=== PATIENT | female | born 1970 | race Caucasian/White ===

== ENCOUNTER → 2018-06-30 | Outpatient (CLI) | payer MEDICARE ==
--- NOTE | 2018-07-01 07:06 | US ---
EXAMINATION TYPE: US kidneys/renal and bladder DATE OF EXAM: 06/30/2018 COMPARISON: NONE CLINICAL HISTORY: R94.4 ABN RENAL FUNCTION TEST,ELEV BUN CRE. Abnormal renal function EXAM MEASUREMENTS: Right Kidney: 7.6 x 3.2 x 3.8 cm Left Kidney: 9.4 x 4.3 x 4.2 cm Technical limitations due to large amount of overlying bowel content Right Kidney: cystic area lower pole = 1.0 x 0.8 x 1.1cm Left Kidney: cystic area lower pole = 1.5 x 1.3 x 1.5cm Bladder: appears wnl Bilateral Jets seen: yes Right kidney measures somewhat small in size with increased cortical echogenicity. Technologist marke d 1.1 cm round hypoechoic to anechoic lesion with increased through transmission lower pole level fav oring simple cyst. Left kidney is not greatly seen on images saved. There is improved cortical medull ramsey differentiation. Technologist torres 1.5 cm oval hypoechoic to anechoic lesion with increased thro ugh transmission favoring simple cyst. Bladder is elongated with visualization of bilateral distal ur eter jets.. IMPRESSION: Suboptimal study without hydronephrosis identified bilaterally.
== END | disposition home or self-care (01) ==
LOC: RADUSWWP 15:55
PROVIDERS: ATTEND Internal Medicine
DX: R94.4 Abnormal results of kidney function studies (principal)
CPT/HCPCS: 76770